=== PATIENT | female | born 1960 | race Caucasian/White ===

== ENCOUNTER → 2017-03-19 | Outpatient (CLI) | payer OTHER ==
--- NOTE | 2017-03-19 14:32 | RAD ---
EXAM DESCRIPTION: Sacrum Coccyx CLINICAL HISTORY: FALL LADDER COMPARISON: None. IMPRESSION: 3 views of the sacrum and coccyx show mild anterior angulation of the coccyx could represent mild fracture although no definite cortical disruption or fracture line is seen. 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 Electronically signed by: Genaro Sellers MD 03/19/2017 2:31 PM [facility]
== END | disposition home or self-care (01) ==
LOC: RAD 13:12
PROVIDERS: ATTEND Nurse Practitioner Family
DX: M47.898 Other spondylosis, sacral and sacrococcygeal region (principal)

== ENCOUNTER → 2019-01-06 | Outpatient (CLI) | payer BC | LOC: GMAJ 11:51 | PROVIDERS: ATTEND Family Medicine | DX: E25.8 Other adrenogenital disorders (principal); E05.90 Thyrotoxicosis, unspecified without thyrotoxic crisis or storm ==

== ENCOUNTER → 2019-01-20 | Outpatient (CLI) | payer BC ==
--- NOTE | 2019-01-22 11:05 | NM ---
EXAM DESCRIPTION: Thyroid Uptake Scan CLINICAL HISTORY: THYROTOXICOSIS COMPARISON: No thyroid ultrasound or thyroid function tests available. TECHNIQUE: Patient was given 301 microcurie of iodine 123 radiopharmaceutical orally. Percentage of activity in the thyroid gland was measured at 5 hr. Anterior and oblique gamma camera images were obtained of the thyroid gland at 5 hr. Activity was again measured at 24 hr. No images obtained at 24 hours. FINDINGS: Heterogeneous activity in both lobes of the thyroid gland. The right lobe is larger than the left lobe. No photopenic "cold" nodules bilaterally or "hot" nodules bilaterally. No ectopic activity in the neck soft tissues. 7.4% uptake at 5 hours which is within normal range. 17.7% uptake at 24 hours which is within normal range. IMPRESSION: Normal thyroid I-123 uptake and scan. If these findings are discordant with clinical findings, consider thyroid ultrasound. Electronically signed by: Demetris Ibarra MD 01/22/2019 11:04 AM CDT
== END ==
LOC: NM 08:06
PROVIDERS: ATTEND Family Medicine
DX: E05.90 Thyrotoxicosis, unspecified without thyrotoxic crisis or storm (principal)
CPT/HCPCS: 78012; A9516

== ENCOUNTER → 2019-04-03 | Outpatient (CLI) | payer BC ==
--- NOTE | 2019-04-04 10:44 | US ---
US THYROID CLINICAL STATEMENT: HYPERTHYROIDISM. COMPARISON: None TECHNIQUE: Transcutaneous scanning, grayscale and Doppler modes. FINDINGS: Size right thyroid lobe: 4.1 x 1.2 x 1.4 cm Size left thyroid lobe: 3.4 x 1.3 x 1.0 cm Size isthmus: 0.23 cm Estimated total number of nodules greater than or equal to 1 cm: None. Both lobes and isthmus are homogeneous. No dominant solid mass, no distinct cyst, no parenchymal edema, no large calcifications Soft tissue around the thyroid gland is unremarkable. IMPRESSION: 1. The thyroid gland in the surrounding soft tissues are unremarkable. Homogeneous echoes in the gland. *ACR TI-RADS 2017 Recommendations for imaging follow-up of nodules: TR1: No FNA or follow up TR2: No FNA or follow up TR3: FNA if >/= 2.5 cm, follow up if 1.5 - 2.4 cm in 1, 3, and 5 years TR4: FNA if >/= 1.5 cm, follow up if 1.0 - 1.4 cm in 1, 2, 3, and 5 years TR5: FNA if >/= 1.0 cm, follow up if 0.5 - 0.9 cm every year for 5 years ACR TI-RADS recommends that no more than two nodules with the highest ACR TI-RADS total point should be biopsied and no more than four nodules should be followed. These recommendations do not apply to patients with increased risk for thyroid cancer or patients with symptomatic thyroid disease. Electronically signed by: Demetris Ibarra MD 04/04/2019 10:43 AM [employer]NAL [employer]CH[employer]IC
== END ==
LOC: US 16:30
PROVIDERS: ATTEND Internal Medicine Endocrinology, Diabetes & Metabolism
DX: E05.90 Thyrotoxicosis, unspecified without thyrotoxic crisis or storm (principal); E04.9 Nontoxic goiter, unspecified; R94.6 Abnormal results of thyroid function studies; R94.7 Abnormal results of other endocrine function studies

== ENCOUNTER 2020-05-23 10:44 | Emergency (ER) | payer BC ==
[2020-05-23 11:06] VITALS: TEMP 97.7; O2SAT 96
--- NOTE | 2020-05-23 11:15 | ED.PDOC ---
History of Present Illness - General Chief Complaint: Dental/Mouth Stated Complaint: dental abcess Time Seen by Provider: 05/23/20 10:45 Source: patient Exam Limitations: no limitations - History of Present Illness Initial Comments: PATIENT WITH 24 HOUR HISTORY OF ABSCESS VISIBLE ON UPPER LEFT GUMS ABOVE THE CANINE AREA. ABSCESS HAS BEEN SPONTANEOUSLY DRAINING, SHE HAS BEEN CLEANING IT WITH BAKING SODA AND H2O2. Prearrival Treatment: no prearrival treatment Improving Factors: nothing Worsening Factors: nothing Allergies/Adverse Reactions: Allergies NO KNOWN ALLERGY Allergy (Verified 08/04/13 17:15) Home Medications: Ambulatory Orders Penicillin V Potassium 1,000 mg PO BID #40 tab 05/23/20 Review of Systems - Review of Systems Constitutional: States: no symptoms reported EENTM: States: see HPI Respiratory: States: no symptoms reported Cardiology: States: no symptoms reported Gastrointestinal/Abdominal: States: no symptoms reported Genitourinary: States: no symptoms reported Musculoskeletal: States: no symptoms reported Skin: States: no symptoms reported Neurological: States: no symptoms reported Endocrine: States: no symptoms reported Past Medical History (General) - Patient Medical History Hx Hypertension: Yes Hx Cancer: No Surgical History: no surgical history - Vaccination History Hx Tetanus, Diphtheria Vaccination: No Hx Influenza Vaccination: No Hx Pneumococcal Vaccination: No Immunizations Up to Date: No - Social History Hx Tobacco Use: No Hx Alcohol Use: No Hx Substance Use: No Hx Substance Use Treatment: No Hx Depression: No - Female History Patient is a Female of Child Bearing Age (10 -59 yrs old): No Family Medical History - Family History Mother Family History: Unknown Living Status: Physical Exam - Physical Exam General Appearance: Alert, Well Developed, Well Groomed, Well Hydrated, Well Nourished Throat Exam: other - ABSCESS OVER LEFT CANINE AREA, DRAINING WHITE PURULENT DRAINAGE. SOME MILD ERYTHEMA OF GUMS, MINIMAL SWELLING. Cardiovascular/Respiratory: no respiratory distress Skin Exam: normal color, warm/dry Departure - Departure Clinical Impression: Dental abscess Time of Disposition: 11:16 Disposition: Discharge to Home or Self Care Condition: Good Departure Forms: ED Discharge - Pt. Copy, Patient Portal Self Enrollment Instructions: DI for Mouth Pain Referrals: John Natarajan MD [Primary Care Provider] - 1-2 Weeks Prescriptions: Penicillin V Potassium 1,000 mg PO BID #40 tab Home Medications: Ambulatory Orders Penicillin V Potassium 1,000 mg PO BID #40 tab 05/23/20 Additional Instructions: PLEASE MAKE APPOINTMENT TO SEE YOUR DENTIST NAN.
[2020-05-23 11:16] VITALS: BP 141/84
== END 2020-05-23 11:23 | disposition home or self-care (01) ==
LOC: ER 10:44
DX: K04.7 Periapical abscess without sinus (principal); I10 Essential (primary) hypertension